=== PATIENT | male | born 1965 | race Two or more races ===

== ENCOUNTER 2018-01-11 10:08 | Emergency (ER) | payer MEDICAID, MEDICARE ==
[~2018-01-11] VITALS: Ht 154.9 cm; Wt 59.1 kg
[2018-01-11 10:11] VITALS: BP 115/82
[2018-01-11] MEDS ORDERED: HYDROcodone/APAP 5/325 TABLET ONE (10:28)
[2018-01-11] MEDS ORDERED: HYDROcodone/APAP 5/325 TABLET PO ONE (10:30)
== END 2018-01-11 11:26 | disposition home or self-care (01) ==
LOC: ED 10:58
DX: S22.41XA Multiple fractures of ribs, right side, initial encounter for closed fracture (principal); F17.200 Nicotine dependence, unspecified, uncomplicated; W03.XXXA Other fall on same level due to collision with another person, initial encounter; Y93.89 Activity, other specified; Y92.488 Other paved roadways as the place of occurrence of the external cause; Y99.8 Other external cause status
CPT/HCPCS: 99284